=== PATIENT | female | born 1975 | race Caucasian/White ===

== ENCOUNTER 2019-09-16 17:34 | Emergency (ER) | payer SELFPAY ==
[~2019-09-16] VITALS: Ht 162.6 cm; Wt 81.8 kg
[2019-09-16] MEDS ORDERED: LIDOCAINE 2%/EPI 1:100,000 20 ML VIAL. IJ ONE (18:00)
[2019-09-16] MEDS ORDERED: CLINDAMYCIN HCL 150 MG CAPSULE PO ONE (18:00)
[2019-09-16] MEDS ORDERED: CLIN300C8 PO (18:28)
[2019-09-16] MEDS ORDERED: HYDR-3165 PO (18:28)
--- NOTE | 2019-09-16 18:28 | PHYS DOC ---
Past History Past Medical History: Other Additional Past Medical Histor: Lupus, denies every being on any treatment Past Surgical History: No Surgical History Alcohol Use: None Drug Use: None General Adult EDM: Chief Complaint: SKIN PROBLEM HPI: HPI: Patient is a [age] year old [sex] who presents with [] Review of Systems: Review of Systems: Constitutional: Denies fever or chills Eyes: Denies change in visual acuity HENT: Denies nasal congestion or sore throat Respiratory: Denies cough or shortness of breath Cardiovascular: Denies chest pain or edema GI: Denies abdominal pain, nausea, vomiting, bloody stools or diarrhea : Denies dysuria Musculoskeletal: Denies back pain or joint pain Integument: Denies rash Neurologic: Denies headache, focal weakness or sensory changes Endocrine: Denies polyuria or polydipsia Lymphatic: Denies swollen glands Psychiatric: Denies depression or anxiety Heart Score: Risk Factors: Risk Factors: DM, Current or recent (<one month) smoker, HTN, HLP, family history of CAD, obesity. Risk Scores: Score 0 - 3: 2.5% MACE over next 6 weeks - Discharge Home Score 4 - 6: 20.3% MACE over next 6 weeks - Admit for Clinical Observation Score 7 - 10: 72.7% MACE over next 6 weeks - Early Invasive Strategies Current Medications: Current Meds: Current Medications Medications (Trade) Dose Ordered Sig/Yi Start Time Stop Time Status Last Admin Dose Admin Clindamycin HCl (Cleocin) 300 mg 1X ONCE 09/16/19 18:00 09/16/19 18:01 DC Lidocaine/ Epinephrine (Xylocaine 2%-Epi 1:100,000) 20 ml 1X ONCE 09/16/19 18:00 09/16/19 18:01 DC Allergies: Allergies: Allergies Coded Allergies Type Severity Reaction Last Updated Verified Penicillins Allergy Unknown 08/10/14 Yes Physical Exam: PE: Constitutional: Well developed, well nourished, no acute distress, non-toxic appearance. [] HENT: Normocephalic, atraumatic, bilateral external ears normal, oropharynx moist, no oral exudates, nose normal. [] Eyes: PERRLA, EOMI, conjunctiva normal, no discharge. [] Neck: Normal range of motion, no tenderness, supple, no stridor. [] Cardiovascular:Heart rate regular rhythm, no murmur [] Lungs & Thorax: Bilateral breath sounds clear to auscultation [] Abdomen: Bowel sounds normal, soft, no tenderness, no masses, no pulsatile masses. [] Skin: Warm, dry, no erythema, no rash. [] Back: No tenderness, no CVA tenderness. [] Extremities: No tenderness, no cyanosis, no clubbing, ROM intact, no edema. [] Neurologic: Alert and oriented X 3, normal motor function, normal sensory function, no focal deficits noted. [] Psychologic: Affect normal, judgement normal, mood normal. [] Current Patient Data: Vital Signs: Vital Signs Date Time Temp Pulse Resp B/P (MAP) Pulse Ox O2 Delivery O2 Flow Rate FiO2 09/16/19 17:49 98.2 110 18 128/66 (86) 98 Room Air EKG: EKG: [] Radiology/Procedures: Radiology/Procedures: [] Course & Med Decision Making: Course & Med Decision Making Pertinent Labs and Imaging studies reviewed. (See chart for details) [] Dragon Disclaimer: Dragon Disclaimer: This electronic medical record was generated, in whole or in part, using a voice recognition dictation system. Departure Departure: Impression: Primary Impression: Abscess Disposition: HOME/RESIDENCE PRIOR TO ADM Condition: STABLE Referrals: PCP,LARRY (PCP) Patient Instructions: Abscess, [id number], Incision and Drainage, Care After Additional Instructions: Remove packing after 24 hours. Do not soak your wound. You may shower. Clean wound daily with soap and water. Change dressing 2 times daily. Use over the counter antibiotic ointment with each dressing change. Scripts Clindamycin Hcl (CLINDAMYCIN HCL) 300 Mg Capsule 1 CAP PO TID for infection for 7 Days, #21 CAP Prov: XAVIER ALLEN DO 09/16/19 Hydrocodone Bit/Acetaminophen (NORCO 5-325 TABLET) 1 Each Tablet 0.5-1 TAB PO Q6HRS PRN for PAIN, #10 TAB Prov: XAVIER ALLEN DO 09/16/19 Justification of Admission: Justification of Admission: Justification of Admission Dx: N/A XAVIER ALLEN DO Sep 16, 2019 18:28
[2019-09-16 18:48] VITALS: BP 133/56
== END 2019-09-16 18:52 | disposition home or self-care (01) ==
LOC: ER 17:34
DX: L02.211 Cutaneous abscess of abdominal wall (principal); R21 Rash and other nonspecific skin eruption
CPT/HCPCS: 10060; 99283

== ENCOUNTER 2019-11-01 19:20 | Emergency (ER) | payer SELFPAY ==
[~2019-11-01] VITALS: Ht 162.6 cm; Wt 80.0 kg
[~2019-11-01 19:20] MED LIST: CLIN300C8 PO; HYDR-3165 PO
[2019-11-01] MEDS ORDERED: IV NORMAL SALINE 1,000ML 1,000 ML IV SCH (20:28)
[2019-11-01] MEDS ORDERED: methylPREDNISolone SOD SUCC PF 125 MG/2 ML VIAL. IV ONE (20:30)
--- NOTE | 2019-11-01 20:41 | PHYS DOC ---
Past History Past Medical History: Other Additional Past Medical Histor: Lupus, denies every being on any treatment Past Surgical History: No Surgical History Smoking: Cigarettes Alcohol Use: None Drug Use: None General Adult EDM: Chief Complaint: MULTIPLE COMPLAINTS HPI: HPI: Patient is a 44 year old female who presents for evaluation of multiple complaints. These include cough, headache and dizziness. Patient has some diffuse abdominal discomfort and body aches. Symptoms been progressing for the past 2 days. Patient has recent nasal congestion and a sore throat. Patient has no known exposure to COVID. Patient is a smoker. Patient does get seasonal bronchitis. Vital signs otherwise stable and patient is nontoxic-appearing Review of Systems: Review of Systems: Constitutional: has fever or chills Eyes: Denies change in visual acuity HENT: has nasal congestion and sore throat Respiratory: has cough and shortness of breath Cardiovascular: has chest pain, no edema GI: Denies abdominal pain, has nausea, no vomiting, bloody stools or diarrhea : Denies dysuria Musculoskeletal: Denies back pain or joint pain Integument: Denies rash Neurologic: has headache, no focal weakness or sensory changes Endocrine: Denies polyuria or polydipsia Lymphatic: Denies swollen glands Psychiatric: Denies depression or anxiety Heart Score: Risk Factors: Risk Factors: DM, Current or recent (<one month) smoker, HTN, HLP, family history of CAD, obesity. Risk Scores: Score 0 - 3: 2.5% MACE over next 6 weeks - Discharge Home Score 4 - 6: 20.3% MACE over next 6 weeks - Admit for Clinical Observation Score 7 - 10: 72.7% MACE over next 6 weeks - Early Invasive Strategies Current Medications: Current Meds: Current Medications Medications (Trade) Dose Ordered Sig/Yi Start Time Stop Time Status Last Admin Dose Admin Methylprednisolone Sodium Succinate (SOLU-Medrol 125MG VIAL) 125 mg 1X ONCE 11/01/19 20:30 11/01/19 20:34 DC Sodium Chloride 1,000 ml @ 1,000 mls/hr Q1H 11/01/19 20:28 11/01/19 21:27 Allergies: Allergies: Allergies Coded Allergies Type Severity Reaction Last Updated Verified Penicillins Allergy Unknown 08/10/14 Yes Physical Exam: PE: Constitutional: Well developed, well nourished, mild to moderate acute distress, non-toxic appearance. [] HENT: Normocephalic, atraumatic, bilateral external ears normal, oropharynx m oist, no oral exudates, nose normal. [] Eyes: PERRL, EOMI, conjunctiva normal, no discharge. [] Neck: Normal range of motion, no tenderness, supple, no stridor. [] Cardiovascular:Heart rate regular rhythm, no murmur [] Lungs & Thorax: Bilateral breath sounds clear to auscultation [] Abdomen: Bowel sounds normal, soft, minimal diffuse tenderness, no masses, no pulsatile masses. [] Skin: Warm, dry, no erythema, no rash. [] Back: No tenderness. [] Extremities: No tenderness, no cyanosis, no clubbing, ROM intact, no edema. [] Neurologic: Alert and oriented, normal motor function, normal sensory function, no focal deficits noted. [] Psychologic: Affect normal, judgement normal, mood abnormal. [] Current Patient Data: Labs: Laboratory Tests Test 11/01/19 21:22 11/01/19 21:41 White Blood Count 6.8 x10^3/uL Red Blood Count 3.56 x10^6/uL Hemoglobin 10.7 g/dL Hematocrit 33.4 % Mean Corpuscular Volume 94 fL Mean Corpuscular Hemoglobin 30 pg Mean Corpuscular Hemoglobin Concent 32 g/dL Red Cell Distribution Width 15.7 % Platelet Count 322 x10^3/uL Neutrophils (%) (Auto) 78 % Lymphocytes (%) (Auto) 13 % Monocytes (%) (Auto) 7 % Eosinophils (%) (Auto) 1 % Basophils (%) (Auto) 1 % Neutrophils # (Auto) 5.3 x10^3uL Lymphocytes # (Auto) 0.9 x10^3/uL Monocytes # (Auto) 0.5 x10^3/uL Eosinophils # (Auto) 0.1 x10^3/uL Basophils # (Auto) 0.0 x10^3/uL Sodium Level 135 mmol/L Potassium Level 3.9 mmol/L Chloride Level 103 mmol/L Carbon Dioxide Level 24 mmol/L Anion Gap 8 Blood Urea Nitrogen 16 mg/dL Creatinine 0.6 mg/dL Estimated GFR (Cockcroft-Gault) 109.1 BUN/Creatinine Ratio 27 Glucose Level 92 mg/dL Calcium Level 8.2 mg/dL Total Bilirubin 0.1 mg/dL Aspartate Amino Transf (AST/SGOT) 12 U/L Alanine Aminotransferase (ALT/SGPT) 24 U/L Alkaline Phosphatase 103 U/L Total Protein 7.4 g/dL Albumin 3.4 g/dL Albumin/Globulin Ratio 0.9 Lipase 45 U/L Serum Test, Qualitative Negative Urine Collection Type Unknown Urine Color Yellow Urine Clarity Clear Urine pH 6.5 Urine Specific [place] 1.010 Urine Protein Neg Urine Glucose (UA) Neg mg/dL Urine Ketones (Stick) Neg mg/dL Urine Blood Small Urine Nitrite Neg Urine Bilirubin Neg Urine Urobilinogen Dipstick 0.2 mg/dL Urine Leukocyte Esterase Neg Urine RBC 0 /HPF Urine WBC 0 /HPF Urine Squamous Epithelial Cells Few /LPF Urine Bacteria 0 /HPF Current Medications Medications (Trade) Dose Ordered Sig/Yi Route PRN Reason Start Time Stop Time Status Last Admin Dose Admin Sodium Chloride 1,000 ml @ 1,000 mls/hr Q1H IV 11/01/19 20:28 11/01/19 21:27 DC Methylprednisolone Sodium Succinate (SOLU-Medrol 125MG VIAL) 125 mg 1X ONCE IV 11/01/19 20:30 11/01/19 20:34 DC EKG: EKG: [] Radiology/Procedures: Radiology/Procedures: [][place] [address] IMAGING REPORT Signed PATIENT: LEXI BLANK ACCOUNT: [id number] : 1975 LOCATION: ER AGE: 44 SEX: F EXAM STATUS: PRE ER ORD. PHYSICIAN: RAUDEL MEADOWS DO REASON: CHEST AND ABD PAIN. HX TUBAL PROCEDURE: ACUTE ABDOMEN SERIES PA chest and AP upright supine abdomen x-rays HISTORY: Chest pain and abdominal pain. FINDINGS: Heart size normal. Mediastinum unremarkable. No pulmonary opacities or pleural effusions. No pneumoperitoneum. Cholecystectomy surgical clips. Large volume of stool consistent with constipation. Left pelvic phlebolith. 2 cm density surrounded by stool density at the cecum presumably due to something the patient ingested or soft tissue calcification overlapped by the cecum. No small bowel obstruction evident. IMPRESSION: Constipation with a large volume of stool present. No acute process in the chest. Electronically signed by: Wayne Draper MD (11/01/2019 9:29 PM) [facility] DICTATED AND SIGNED BY: WAYNE DRAPER MD DATE: 11/01/192128 CC: PCP,LARRY; RAUDEL MEADOWS DO ~ Course & Med Decision Making: Course & Med Decision Making Pertinent Labs and Imaging studies reviewed. (See chart for details) 2234 stable, feeling much better at this time. Lab work and x-rays unremarkable. COVID follow-up instructions and quarantine instructions given. Those results were not yet known. Prescription for Medrol Dosepak and albuterol inhaler given. Chest x-ray was clear Dragon Disclaimer: DragJascha Disclaimer: This electronic medical record was generated, in whole or in part, using a voice recognition dictation system. Departure Departure: Impression: Primary Impression: Acute bronchitis Qualified Codes: J20.9 - Acute bronchitis, unspecified Additional Impression: Person under investigation for COVID-19 Disposition: HOME/RESIDENCE PRIOR TO ADM Condition: STABLE Referrals: PCP,LARRY (PCP) TONA VILLASEÑOR MD Patient Instructions: Bronchitis Additional Instructions: Drink plenty fluids, rest, follow COVID instructions until results are known. No smoking, take medication as directed You have been tested for or diagnosed with COVID-19. It is an infection caused by a new type of coronavirus. COVID-19 will cause cold-like or mild flu symptoms in most. It can cause more severe symptoms like problems breathing in some. There is no treatment for COVID-19. The body will clear the infection over time. Self-care will help to ease discomfort. Steps to Take: Self-Care Rest as needed. Healthy habits may help you feel better. Steps include: Choose healthy foods including fruits and vegetables. Drink water throughout the day. Get plenty of sleep each night. If you smoke, try to quit. It may ease breathing. Avoid alcohol. Keep Others Healthy The virus can spread to others. Droplets are released every time you sneeze or cough. The droplets can get into the mouth, nose, or eyes of people near you and lead to infection. To lower the chances of spreading COVID-19 to others: Stay at home until your doctor has said it is safe to leave. If you tested positive this will mean staying isolated until both of the following are true: At least 7 days have passed since the start of illness. You are free of fever for at least 72 hours without the use of medicine. During this time: - Avoid public areas, events, or transportation. Do not return to work or school until your doctor has said it is safe to do so. - Call ahead if you need to go to a medical center. Let them know you may have COVID-19. It will help them guide you where to go. They may also ask you to wear a facemask when you come to the office. - If you call for emergency medical services, let them know you may have COVID- 19. While at home: - Try to avoid close contact with others. Stay about 6 feet away. - If possible, spend most of your time in a separate room from others. - Use a face mask if you will be in close contact with others such as sharing a room or vehicle. - Have someone wipe down common surfaces in the home. Use household breaker mechanic every day on areas like doorknobs, counters, or sinks. - Cough or sneeze into a tissue. Throw the tissue away right after use. If a tissue is not available, cough or sneeze into your elbow. - Wash your hands often. Wash them after sneezing or coughing. Use soap and water and wash for at least 20 seconds. Alcohol based hand kitchen cleaner can be used if soap and water is not available. - Do not prepare food for others. Avoid sharing personal items like forks, spoons, or toothbrushes. - Avoid close contact with pets while you are sick. There is no evidence of the virus passing to pets. This is a safety step until more is known about this virus. Isolation can be frustrating. Social interaction can help. Keep in touch with friends and family through phone and tech options. You can still interact with others in your home, just keep a safe distance of about 6 feet. Follow-up: Your doctors office will check in with you to see if there are any changes in your health. You may be asked to keep track of symptoms to share with them. They will also let you know when you are clear to be in public again. Problems to Look Out For: Contact your doctor if your recovery is not going as you expect. Get emergency care if you have problems such as: - Trouble breathing - Nonstop chest pain or pressure - Changes in awareness, confusion, or problems waking - Lips or face have bluish color - Worsening of symptoms If you think you have an emergency, call for emergency medical services right away. As taken from [facility] Scripts Albuterol Sulfate (VENTOLIN HFA INHALER) 18 Gm Hfa.aer.ad 1 PUFF IH PRN Q4HRS PRN for FOR ASTHMA for 10 Days, INHALER 0 Refills Prov: RAUDEL MEADOWS DO 11/01/19 Methylprednisolone (MEDROL) 4 Mg Tab.ds.pk 1 PKG PO UD for wheezing, #1 PKG Prov: RAUDEL MEADOWS DO 11/01/19 Azithromycin (ZITHROMAX TRI-EVE) 500 Mg Tablet 1 TAB PO DAILY for bronchitis, #3 TAB Prov: RAUDEL MEADOWS DO 11/01/19 Justification of Admission: Justification of Admission: Justification of Admission Dx: N/A COVID-19 Assessment COVID-19 Patient Risks: Age 65 or older: No Sign of co-morbidity: Yes Exp to person + for COVID: No Exp to PUI: No Travel from affected area: No Lower respiratory symptoms: Yes Fever: Yes Other: No PPE Use: Full PPE with N95 mask or PAPR: Yes RAUDEL MEADOWS DO Nov 01, 2019 20:41
--- NOTE | 2019-11-01 21:32 | RAD ---
PA chest and AP upright supine abdomen x-rays HISTORY: Chest pain and abdominal pain. FINDINGS: Heart size normal. Mediastinum unremarkable. No pulmonary opacities or pleural effusions. No pneumoperitoneum. Cholecystectomy surgical clips. Large volume of stool consistent with constipation. Left pelvic phlebolith. 2 cm density surrounded by stool density at the cecum presumably due to something the patient ingested or soft tissue calcification overlapped by the cecum. No small bowel obstruction evident. IMPRESSION: Constipation with a large volume of stool present. No acute process in the chest. Electronically signed by: Jose Draper MD (11/01/2019 9:29 PM) [facility]
[2019-11-01 21:49] LABS: BASO % 1 % (0-3); EOS # 0.1 x10^3/uL (0.0-0.7); EOS % 1 % (0-3); HEMATOCRIT 33.4 % (36.0-47.0); HEMOGLOBIN 10.7 g/dL (12.0-15.5); LYMPH # 0.9 x10^3/uL (1.0-4.8); LYMPH % 13 % (24-48); MEAN CORPUSCULAR HEMOGLOBIN 30 pg (25-35); MEAN CORPUSCULAR HGB CONC 32 g/dL (31-37); MEAN CORPUSCULAR VOLUME 94 fL (79-100); MONO # 0.5 x10^3/uL (0.0-1.1); MONO % 7 % (0-9); NEUT # 5.3 x10^3uL (1.8-7.7); NEUT % 78 % (31-73); PLATELET COUNT 322 x10^3/uL (140-400); RED BLOOD COUNT 3.56 x10^6/uL (3.50-5.40); RED CELL DISTRIBUTION WIDTH 15.7 % (11.5-14.5); WHITE BLOOD COUNT 6.8 x10^3/uL (4.0-11.0)
[2019-11-01 21:50] LABS: PREG TEST PT QUAL NEGATIVE (NEG)
[2019-11-01 21:56] LABS: CALCIUM 8.2 mg/dL (8.5-10.1); CREATININE 0.6 mg/dL (0.6-1.0); GFR 109.1; POTASSIUM 3.9 mmol/L (3.5-5.1)
[2019-11-01 22:03] LABS: ALBUMIN 3.4 g/dL (3.4-5.0); ALBUMIN/GLOBULIN RATIO 0.9 (1.0-1.7); TOTAL BILIRUBIN 0.1 mg/dL (0.2-1.0); TOTAL PROTEIN 7.4 g/dL (6.4-8.2)
[2019-11-01 22:15] LABS: BILIRUBIN,URINE NEG (NEG); CLARITY,URINE CLEAR; COLOR,URINE YELLOW; GLUCOSE,URINE NEG (NEG); NITRITE,URINE NEG (NEG); UROBILINOGEN,URINE 0.2 mg/dL (0.2 mg/dL)
[2019-11-01 22:19] LABS: BACTERIA,URINE 0 /HPF (0-FEW); RBC,URINE 0 /HPF (0-2); SQUAMOUS EPITHELIAL CELL,UR FEW /LPF; WBC,URINE 0 /HPF (0-4)
[2019-11-01] MEDS ORDERED: AZIT500T2 PO (22:42)
[2019-11-01] MEDS ORDERED: ALBU2.5V8 IH (22:42)
[2019-11-01] MEDS ORDERED: METH4TAB2 PO (22:42)
[2019-11-01 23:00] VITALS: BP 117/58
[2019-11-01] MEDS ORDERED: ALBUTEROL SULFATE 8GM INHALER. INH ONE (23:15)
--- NOTE | 2019-11-04 11:59 | NUR ---
IP: attempt to notify patient of COVID result, unable to leave call back message. Will send letter.
== END 2019-11-01 23:22 | disposition home or self-care (01) ==
LOC: ER 19:20
DX: J20.9 Acute bronchitis, unspecified (principal); R10.84 Generalized abdominal pain; J02.9 Acute pharyngitis, unspecified; F17.210 Nicotine dependence, cigarettes, uncomplicated; Z20.828 Contact with and (suspected) exposure to other viral communicable diseases; Z88.0 Allergy status to penicillin
CPT/HCPCS: 36415; 74022; 80053; 81001; 83690; 84703; 85025; 94640; 96361; 96374; 99284; J2930; J7030; J7613; U0003; 94664

== ENCOUNTER 2020-03-06 13:07 | Emergency (ER) | payer OTHER ==
[~2020-03-06] VITALS: Ht 162.6 cm; Wt 80.0 kg
[~2020-03-06 13:07] MED LIST changes: +ALBU2.5V8 IH; +AZIT500T2 PO; -CLIN300C8 PO; +CLIN300C9 PO; +METH4TAB2 PO
--- NOTE | 2020-03-06 13:31 | PHYS DOC ---
Past History Past Medical History: Bronchitis, Gallstones, Other Additional Past Medical Histor: Lupus, denies every being on any treatment Past Surgical History: Cholecystectomy, Tubal ligation Smoking: Cigarettes Alcohol Use: None Drug Use: None Adult General HPI HPI Patient is a 44-year-old female presents emergency department reporting a slip and fall this morning at work. 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 Patient denies hitting her head, denies loss of consciousness, denies back pain. Patient reports both her knees hurt her left elbow hurts her right hip and pelvis area hurts. Patient states that a coworker helped her into her car and drove her here for emergency department evaluation. Patient states she is a cigarette smoker, denies alcohol use or illicit drug use. Patient denies numbness or tingling down her extremities, patient reports her pain at a 7/10 on a 1-10 pain scale. Patient reports a past surgical history of having her gallbladder removed in 2013, a tubal ligation in the year 1999, right sided carpal tunnel surgery in 2010. Patient reports an allergy to penicillin, takes no prescription medications at home, denies taking ocro-clm-sgblytm medications at home. Patient denies any other physical complaints or physical injuries. Patient states her last tetanus immunization was a year ago. Patient denies any COVID-19 virus symptoms, does not wish to be checked for the COVID-19 virus today. Review of Systems Review of Systems 14 body systems of review of systems have been reviewed. See HPI for pertinent positives and negative responses, otherwise all other systems are negative, nonpertinent or noncontributory. Allergies Allergies Allergies Coded Allergies Type Severity Reaction Last Updated Verified Penicillins Allergy Unknown 11/01/19 Yes Physical Exam Physical Exam Constitutional: Well developed, well nourished, no acute distress, non-toxic appearance. HENT: Normocephalic, atraumatic, bilateral external ears normal, oropharynx moist, no oral exudates, nose normal. Eyes: PERRLA, EOMI, conjunctiva normal, no discharge. Neck: Normal range of motion, no tenderness, supple, no stridor. Cardiovascular:Heart rate regular rhythm, no murmur, heart sounds S1-S2. Lungs & Thorax: Bilateral breath sounds clear to auscultation all lung espinosa. Abdomen: Bowel sounds normal, soft, no tenderness, no masses, no pulsatile masses. Skin: Warm, dry, no erythema, no rash. Superficial abrasion left elbow measuring 1 cm x 2 cm no bleeding. Skin intact over bilateral knees, right hip area. Back: No tenderness, no CVA tenderness. Extremities:, no cyanosis, no clubbing, tenderness to palpation and passive range of motion bilateral knees, and left elbow, tenderness to palpation and passive range of motion right hip. Pelvis stable, left elbow full passive range of motion without eliciting pain, pain to palpation at tip of olecranon process. Neurologic: Alert and oriented X 3, normal motor function, normal sensory function, no focal deficits noted. Psychologic: Affect normal, judgement normal, mood normal. EKG EKG [] Radiology/Procedures Radiology/Procedures PATIENT: LEXI BLANK ACCOUNT: [id number] : 1975 LOCATION: ER AGE: 44 SEX: F EXAM STATUS: REG ER ORD. PHYSICIAN: XAVIER ACEVES APRN REASON: SLIP AND FALL PROCEDURE: KNEE BILAT 4V EXAMINATION: XR HIP (WITH OR WITHOUT PELVIS) 1 VIEW, XR KNEE 4 VIEWS WITH PATELLA, XR ELBOW COMPLETE_LEFT 3+VIEWS CLINICAL HISTORY: Pain following fall TECHNIQUE: XR HIP (WITH OR WITHOUT PELVIS) 1 VIEW, XR KNEE 4 VIEWS WITH PATELLA, XR ELBOW COMPLETE_LEFT 3+VIEWS Number of Images/Views: 3 left elbow, 5 bilateral hips, 7 bilateral knees COMPARISON: None FINDINGS: LEFT ELBOW: No acute fracture. Joint spaces and alignment maintained. No significant joint effusion. BILATERAL HIPS: No acute fracture. Mild axial joint space narrowing in the right hip with tiny marginal osteophytes bilaterally. Pubic symphysis and SI joints maintained. Focal calcification projected along the superior margin of the right iliac crest, nonspecific. BILATERAL KNEES: No acute fracture. Medial and lateral compartment narrowing, moderate on the right and mild on the left. Small marginal osteophytes right medial compartment. Probable small joint effusions bilaterally. IMPRESSION: No acute osseous abnormality involving the left elbow, bilateral hips, or bilateral knees. Wzdy-hv-ujkzjydf degenerative changes bilateral knees, greater on the right. Mild degenerative changes right hip. Electronically signed by: Chandler Fraser DO (03/06/2020 2:28 PM) [id number] DICTATED AND SIGNED BY: CHANDLER FRASER DO DATE: 03/06/20 1417 CC: XAVIER ACEVES APRN; EMERGENCY,DEPARTMENT; PCP,LARRY ~MTH0 0 Heart Score Risk Factors: Risk Factors: DM, Current or recent (<one month) smoker, HTN, HLP, family history of CAD, obesity. Risk Scores: Risk Factors: DM, Current or recent (<one month) smoker, HTN, HLP, family history of CAD, obesity. Course & Med Decision Making Course & Med Decision Making Pertinent Labs and Imaging studies reviewed. (See chart for details) 44-year-old female, vital signs reviewed, presents emergency department after slip and fall. Physical examination revealed pain to palpation on right hip and pelvis area, minor abrasion left elbow, bilateral knee pain, the patient was transported from her POV to the ED room via wheelchair. The patient was able to stand and ambulate and transfer to ED exam chair with assistance. X-ray imaging unremarkable, no fractures noted, patient reported some pain relief with IM pain medication given in the ED. Patient's bilateral knees and left elbow were Favio wrapped by ED nurse. Discussed with patient x-ray findings, RICE therapy, will give prescriptions for muscle relaxer and ibuprofen, patient gave verbal understanding of medication use at home, follow-up with primary care soon, return to ER precautions or concerns, follow-up with work comp if needed, no questions or concerns and was discharged home. Dragon Disclaimer Dragon Disclaimer This electronic medical record was generated, in whole or in part, using a voice recognition dictation system. Departure Departure: Impression: Primary Impression: Fall (on) (from) other stairs and steps, initial encounter Additional Impressions: Abrasion of left elbow Left elbow contusion Contusion, knee Contusion, hip Disposition: 01 DC HOME SELF CARE/HOMELESS Condition: IMPROVED Referrals: PCP,NO (PCP) Patient Instructions: Elastic Bandage and RICE Additional Instructions: Please take medications as prescribed, follow RICE therapy, follow-up with your primary care physician or work comp doctor as needed, return to the emergency department for worsening symptoms or other concerns. I have given you a work excuse for the next 2 days. EMERGENCY DEPARTMENT GENERAL DISCHARGE INSTRUCTIONS Thank you for coming to [facility] (ED) today and trusting us with you care. We trust that you had a positivie experience in our Emergency Department. If you wish to speak to the department management, you may call the director at [phone]. YOUR FOLLOW UP INSTRUCTIONS ARE FOLLOWS: 1. Do you have a private Doctor? If you do not have a private doctor, please ask for a resource list of physicians or clinics that may be able to assist you with follow up care. 2. The Emergency Physician has interpreted your x-rays. The X-Ray specialist will also review them. If there is a change in the findings, you will be notified in 48 hours when at all possible. 3. A lab test or culture has been done, your results will be reviewed and you will be notified if you need a change in treatment. ADDITIONAL INSTRUCTIONS AND INFORMATION: 1. Your care today has been supervised by a physician who is specially trained in emergency care. Many problems require more than one evaluation for a complete diagnosis a nd treatment. We recommend that you schedule your follow up appointment as recommended to ensure complete treatment of you illness or injury. If you are unable to obtain follow up care and continue to have a problem, or if your condition worsens, we recommend that you return to the ED. 2. We are not able to safely determine your condition over the phone nor are we able to give sound medical advice over the phone. For these safety reasons, if you call for medical advice we will ask you to come to the ED for further evaluation. 3. If you have any questions regarding these discharge instructions please call the ED at [phone]. SAFETY INFORMATION: In the interest of safety, wellness, and injury prevention; we encourage you to wear your sealbelt, if you smoke; quite smoking, and we encourage family to use a protective helmet for bicycling and other sporting events that present an increased risk for head injury. IF YOUR SYMPTOMS WORSEN OR NEW SYMPTOMS DEVELOP, OR YOU HAVE CONCERNS ABOUT YOUR CONDITION; OR IF YOUR CONDITION WORSENS WHILE YOU ARE WAITING FOR YOUR FOLLOW UP APPOINTMENT; EITHER CONTACT YOUR PRIMARY CARE DOCTOR, THE PHYSICIAN WHOSE NAME AND NUMBER YOU WERE GIVEN, OR RETURN TO THE ED IMMEDIATELY. Scripts Ibuprofen (IBUPROFEN) 600 Mg Tablet 600 MG PO TID PRN for PAIN, #20 TAB 0 Refills Prov: XAVIER ACEVES [employer]STRUCTION [employer]AMER 03/06/20 Cyclobenzaprine Hcl (CYCLOBENZAPRINE HCL) 10 Mg Tablet 1 TAB PO TID PRN PRN for PAIN, #12 TAB 0 Refills Prov: XAVIER ACEVES [employer]ER 03/06/20 Problem Qualifiers Additional Impressions: Abrasion of left elbow Encounter type: initial encounter Qualified Codes: S50.312A - Abrasion of left elbow, initial encounter Left elbow contusion Encounter type: initial encounter Qualified Codes: S50.02XA - Contusion of left elbow, initial encounter Contusion, knee Encounter type: initial encounter Laterality: unspecified laterality Qualified Codes: S80.00XA - Contusion of unspecified knee, initial encounter Contusion, hip Encounter type: initial encounter Laterality: right Qualified Codes: S70.01XA - Contusion of right hip, initial encounter XAVIER ACEVES [employer]STRUCTION [employer]ER Mar 06, 2020 13:31
[2020-03-06] MEDS ORDERED: KETOROLAC 60 MG/2 ML VIAL. IM ONE ×2 (13:43→13:45)
[2020-03-06] MEDS ORDERED: BACITRACIN ZINC TOPICAL OINT PACKET. TP ONE ×2 (13:43→13:45)
--- NOTE | 2020-03-06 14:31 | RAD ---
EXAMINATION: XR HIP (WITH OR WITHOUT PELVIS) 1 VIEW, XR KNEE 4 VIEWS WITH PATELLA, XR ELBOW COMPLETE_ LEFT 3+VIEWS CLINICAL HISTORY: Pain following fall TECHNIQUE: XR HIP (WITH OR WITHOUT PELVIS) 1 VIEW, XR KNEE 4 VIEWS WITH PATELLA, XR ELBOW COMPLETE_LE FT 3+VIEWS Number of Images/Views: 3 left elbow, 5 bilateral hips, 7 bilateral knees COMPARISON: None FINDINGS: LEFT ELBOW: No acute fracture. Joint spaces and alignment maintained. No significant joint effusion. BILATERAL HIPS: No acute fracture. Mild axial joint space narrowing in the right hip with tiny margin al osteophytes bilaterally. Pubic symphysis and SI joints maintained. Focal calcification projected a long the superior margin of the right iliac crest, nonspecific. BILATERAL KNEES: No acute fracture. Medial and lateral compartment narrowing, moderate on the right a nd mild on the left. Small marginal osteophytes right medial compartment. Probable small joint effusi ons bilaterally. IMPRESSION: No acute osseous abnormality involving the left elbow, bilateral hips, or bilateral knees. Xnbx-up-pjzegvxe degenerative changes bilateral knees, greater on the right. Mild degenerative changes right hip. Electronically signed by: Chandler Whitney DO (03/06/2020 2:28 PM) [id number]
[2020-03-06 16:56] LABS: BACTERIA,URINE MANY /HPF (0-FEW); BILIRUBIN,URINE NEG (NEG); CLARITY,URINE HAZY; COLOR,URINE YELLOW; GLUCOSE,URINE NEG (NEG); NITRITE,URINE POS (NEG); SQUAMOUS EPITHELIAL CELL,UR MANY /LPF; UROBILINOGEN,URINE 0.2 mg/dL (0.2 mg/dL)
[2020-03-06] MEDS ORDERED: IBUP600T16 PO (17:57)
[2020-03-06] MEDS ORDERED: CYCL-331 PO (17:57)
[2020-03-06 18:12] VITALS: BP 134/78
== END 2020-03-06 18:12 | disposition home or self-care (01) ==
LOC: ER 13:07
DX: S50.02XA Contusion of left elbow, initial encounter (principal); S80.02XA Contusion of left knee, initial encounter; S80.01XA Contusion of right knee, initial encounter; S70.01XA Contusion of right hip, initial encounter; F17.210 Nicotine dependence, cigarettes, uncomplicated; Z88.0 Allergy status to penicillin; W01.0XXA Fall on same level from slipping, tripping and stumbling without subsequent striking against object, initial encounter; Y93.01 Activity, walking, marching and hiking; Y92.89 Other specified places as the place of occurrence of the external cause; Y99.8 Other external cause status
CPT/HCPCS: 73080; 73521; 73564; 81001; 87086; 96372; 99284; J1885

== ENCOUNTER 2020-04-29 17:46 | Emergency (ER) | payer SELFPAY ==
[~2020-04-29] VITALS: Ht 162.6 cm; Wt 85.0 kg
[~2020-04-29 17:46] MED LIST changes: +CYCL-331 PO; +IBUP600T16 PO
--- NOTE | 2020-04-29 17:49 | PHYS DOC ---
Past History Past Medical History: Bronchitis, Constipation, Gallstones, Other Additional Past Medical Histor: Lupus, denies every being on any treatment Past Surgical History: Cholecystectomy, Tubal ligation Smoking: Cigarettes Alcohol Use: None Drug Use: None General Adult HPI: HPI: ".. I ve been having a lot of distention.. fullness .. the last month or so.. I was keeping me up at night.. and I just decided to get checked tonight...: Patient is a 44 year old female who presents with above hx and complaints of distention x 1month. Patient states she does not think she is too constipated. Patient denies any change in meds. No recent travel. No specific ill contacts. No history immunosuppression. Patient denies any intake bad food. Patient has past medical history of bronchitis, gallstones, lupus, arthritis, cholecy stectomy 2013, and tubal ligation. Patient denies had a EGD or colonoscopy in the last 7 years. Patient denies use of illicit drugs or alcohol. Did eat normal meals today. Last ate a cookie prior to arrival. At 8 PM she did have a peanut butter and jelly sandwich. And history of tarry stools. Review of Systems: Review of Systems: Constitutional: Denies fever or chills Eyes: Denies change in visual acuity HENT: Denies nasal congestion or sore throat Respiratory: Denies cough or shortness of breath Cardiovascular: Denies chest pain or edema GI: Complains of generalized abdominal pain, nausea and bloating. Patient denies, vomiting, bloody stools or diarrhea : Denies dysuria Musculoskeletal: Denies back pain or joint pain Integument: Denies rash Neurologic: Denies headache, focal weakness or sensory changes Endocrine: Denies polyuria or polydipsia Lymphatic: Denies swollen glands Psychiatric: Denies depression or anxiety Family History: Family History: Noncontributory to presentation Current Medications: Current Meds: See nursing for home meds Allergies: Allergies: Allergies Coded Allergies Type Severity Reaction Last Updated Verified Penicillins Allergy Unknown 11/01/19 Yes Physical Exam: PE: Constitutional:no acute distress, non-toxic appearance. [] HENT: Normocephalic, atraumatic, bilateral external ears normal, oropharynx moist, no oral exudates, nose normal. [] Eyes: PERRLA, EOMI, conjunctiva normal, no discharge. [] Neck: Normal range of motion, no tenderness, supple, no stridor. [] Cardiovascular:Heart rate regular rhythm, no murmur [] Lungs & Thorax: Bilateral breath sounds equal apex with few basilar crackles auscultation [] Abdomen: Bowel sounds normal, soft, no tenderness, no masses, no pulsatile masses. Distended. Old surgical scars. Obese. No specific area of rebound pain Skin: Warm, dry, no erythema, no rash. [] Back: No tenderness, no CVA tenderness. [] Extremities: No tenderness, no cyanosis, no clubbing, ROM intact, no edema. No psoas sign. Neurologic: Alert and oriented X 3, normal motor function, normal sensory function, no focal deficits noted. [] Psychologic: Affect anxious, judgement normal, mood normal. [] EKG: EKG: My interpretation EKG shows a sinus rhythm at 82 bpm. No findings acute STEMI or contralateral changes. [] Radiology/Procedures: Radiology/Procedures: [][place] [id number] IMAGING REPORT Signed PATIENT: LEXI BLANK ACCOUNT: [id number] : 1975 LOCATION: ER AGE: 44 SEX: F EXAM STATUS: REG ER ORD. PHYSICIAN: KIRSTEN ACE MD REASON: pain, distention, PROCEDURE: ACUTE ABDOMEN SERIES INDICATION: Reason: pain, distention, / Spl. Instructions: / History: COMPARISON: None. IMPRESSION: 4 views of the chest and abdomen obtained. Cardiac silhouette is unremarkable. No focal airspace consolidation to suggest pneumonia. No intraperitoneal free air is seen. Surgical clips right upper quadrant could be from postcholecystectomy changes. Moderate stool within the colon. Air scattered throughout large and small bowel in a nonspecific but not grossly obstructive pattern. Electronically signed by: Yesy Cramer MD (04/29/2020 6:48 PM) [id number] DICTATED AND SIGNED BY: YESY CRAMER MD DATE: 04/29/20 6760 CC: KIRSTEN ACE MD; PCP,NO ~MTH0 0 Heart Score: C/O Chest Pain: N/A HEART Score for Chest Pain: HEART Score for Chest Pain Response (Comments) Value History Slighlty/Non-Suspicious 0 ECG Normal 0 Age < 45 0 Risk Factors 1 or 2 Risk Factors 1 Troponin < Normal Limit 0 Total 1 Risk Factors: Risk Factors: DM, Current or recent (<one month) smoker, HTN, HLP, family history of CAD, obesity. Risk Scores: Score 0 - 3: 2.5% MACE over next 6 weeks - Discharge Home Score 4 - 6: 20.3% MACE over next 6 weeks - Admit for Clinical Observation Score 7 - 10: 72.7% MACE over next 6 weeks - Early Invasive Strategies Course & Med Decision Making: Course & Med Decision Making Pertinent Labs and Imaging studies reviewed. (See chart for details) Clear fluid diet only for the next 2 days. No solids. No milk products. Remain on clear fluids for bowel rest. Take Bactrim DS twice a day. Follow-up urine results. Follow-up with primary care. Impression: 1. Abdomen pain 2. Urinary tract infection 3. Constipation [] Dragon Disclaimer: Dragon Disclaimer: This electronic medical record was generated, in whole or in part, using a voice recognition dictation system. Departure Departure: Referrals: PCP,NO (PCP) Scripts Sulfamethoxazole/Trimethoprim (BACTRIM DS TABLET) 1 Each Tablet 1 TAB PO BID for uti for 7 Days, #14 TAB 0 Refills Prov: KIRSTEN ACE MD 04/29/20 Dragon Disclaimer This chart was dictated in whole or in part using Voice Recognition software in a busy, high-work load, and often noisy Emergency Department environment. It may contain unintended and wholly unrecognized errors or omissions. Dragon Disclaimer This chart was dictated in whole or in part using Voice Recognition software in a busy, high-work load, and often noisy Emergency Department environment. It may contain unintended and wholly unrecognized errors or omissions. KIRSTEN ACE MD Apr 29, 2020 17:48
[2020-04-29 17:55] VITALS: BP 120/65
[2020-04-29] MEDS ORDERED: MAGNESIUM HYDROXIDE 2,400 MG/30 ML ORAL.SUSP. PO ONE (18:15)
[2020-04-29] MEDS ORDERED: IV RINGERS SOLUTION,LACTATED 1,000 ML IV SCH (18:15)
[2020-04-29] MEDS ORDERED: FAMOTIDINE 20 MG/2 ML VIAL IVP ONE (18:15)
[2020-04-29] MEDS ORDERED: ONDANSETRON PF 4 MG/2 ML VIAL. IVP ONE (18:15)
[2020-04-29] MEDS ORDERED: KETOROLAC 30 MG/ML VIAL. IVP ONE (18:15)
[2020-04-29 18:49] LABS: BARBITURATES NEG (NEG); BENZODIAZEPINES NEG (NEG); CANNABINOIDS NEG (NEG); COCAINE NEG (NEG); METHADONE NEG (NEG); OPIATES NEG (NEG); PHENCYCLIDINE NEG (NEG)
--- NOTE | 2020-04-29 18:50 | RAD ---
INDICATION: Reason: pain, distention, / Spl. Instructions: / History: COMPARISON: None. IMPRESSION: 4 views of the chest and abdomen obtained. Cardiac silhouette is unremarkable. No focal airspace cons olidation to suggest pneumonia. No intraperitoneal free air is seen. Surgical clips right upper quadr ant could be from postcholecystectomy changes. Moderate stool within the colon. Air scattered through out large and small bowel in a nonspecific but not grossly obstructive pattern. Electronically signed by: Kamar Cramer MD (04/29/2020 6:48 PM) [id number]
[2020-04-29 18:53] LABS: BACTERIA,URINE MANY /HPF (0-FEW); BILIRUBIN,URINE NEG (NEG); CLARITY,URINE HAZY; COLOR,URINE YELLOW; GLUCOSE,URINE NEG (NEG); NITRITE,URINE POS (NEG); SQUAMOUS EPITHELIAL CELL,UR FEW /LPF; UROBILINOGEN,URINE 0.2 mg/dL (0.2 mg/dL)
[2020-04-29 18:56] LABS: BASO % 1 % (0-3); EOS # 0.1 x10^3/uL (0.0-0.7); EOS % 1 % (0-3); HEMATOCRIT 32.5 % (36.0-47.0); HEMOGLOBIN 10.4 g/dL (12.0-15.5); LYMPH # 1.3 x10^3/uL (1.0-4.8); LYMPH % 18 % (24-48); MEAN CORPUSCULAR HEMOGLOBIN 29 pg (25-35); MEAN CORPUSCULAR HGB CONC 32 g/dL (31-37); MEAN CORPUSCULAR VOLUME 89 fL (79-100); MONO # 0.5 x10^3/uL (0.0-1.1); MONO % 6 % (0-9); NEUT # 5.4 x10^3uL (1.8-7.7); NEUT % 74 % (31-73); PLATELET COUNT 319 x10^3/uL (140-400); RED BLOOD COUNT 3.63 x10^6/uL (3.50-5.40); RED CELL DISTRIBUTION WIDTH 17.5 % (11.5-14.5); WHITE BLOOD COUNT 7.3 x10^3/uL (4.0-11.0)
[2020-04-29 19:03] LABS: CALCIUM 8.6 mg/dL (8.5-10.1); CREATININE 0.6 mg/dL (0.6-1.0); GFR 109.1; POTASSIUM 3.7 mmol/L (3.5-5.1)
[2020-04-29 19:08] LABS: AMPHETAMINE/METHAMPHETAMINE POS (NEG)
[2020-04-29 19:14] LABS: ALBUMIN 3.7 g/dL (3.4-5.0); DIRECT BILIRUBIN 0.1 mg/dL (0.0-0.2); TOTAL BILIRUBIN 0.3 mg/dL (0.2-1.0); TOTAL PROTEIN 7.8 g/dL (6.4-8.2)
[2020-04-29] MEDS ORDERED: SMZ/TMP 800/160MG TABLET. PO ONE (19:30)
[2020-04-29] MEDS ORDERED: SULF1TAB24 PO (19:31)
--- NOTE | 2020-04-30 08:00 | EKG ---
[address] [address] Test Date: 2020-04-29 Test Time: 18:15:25 Pat Name: LEXI BLANK Department: Room: Gender: F [employer] Technician: : 1975 Requested By: KIRSTEN ACE Order Number: [id number] Reading MD: Measurements Intervals [place] Rate: P: AK: QRS: QRSD: T: QT: QTc: Interpretive Statements
== END 2020-04-29 19:43 | disposition short-term general hospital (02) ==
LOC: ER 18:03
DX: N39.0 Urinary tract infection, site not specified (principal); K59.00 Constipation, unspecified; F17.210 Nicotine dependence, cigarettes, uncomplicated; Z90.49 Acquired absence of other specified parts of digestive tract; Z98.51 Tubal ligation status; Z88.0 Allergy status to penicillin
CPT/HCPCS: 36415; 74022; 80048; 80076; 80307; 81001; 81025; 82150; 83690; 84484; 85025; 85610; 85730; 87086; 93005; 96361; 96374; 96375; 99285; J1885; J2405; J3490; J7120

== ENCOUNTER 2020-05-01 18:16 | Emergency (ER) | payer SELFPAY ==
[~2020-05-01] VITALS: Ht 162.6 cm; Wt 85.0 kg
[~2020-05-01 18:16] MED LIST changes: +SULF1TAB24 PO
--- NOTE | 2020-05-01 18:38 | PHYS DOC ---
Past History Past Medical History: Bronchitis, Constipation, Gallstones, Other Additional Past Medical Histor: lupus, ovarian cysts (XAVIER ACEVES APRN) Past Surgical History: Cholecystectomy, Tubal ligation, Other Additional Past Surgical Histo: ovarian cyst (XAVIER ACEVES APRN) Smoking: Cigarettes Alcohol Use: None Drug Use: None (XAVIER ACEVES APRN) Adult General Chief Complaint Chief Complaint: CONTISPATION HPI HPI Patient is a 44-year-old female presents emergency department complaining that she was seen here 2 days ago for constipation, has done with the doctor told her to cover states that she is still constipated and wants to be seen again. Patient states she has battled constipation, abdominal distention, and feeling a fullness in her abdomen for over a month now. Patient states she does feel nauseated but has not vomited patient denies any recent travel, denies being around anybody ill, denies any history of immunosuppression, denies eating any bad foods lately, denies past medical history of abdominal problems that require surgery. Patient states she does not see a physician and does not take any prescription medications. Patient reports a past surgical history of a gallbladder removal in 2013, tubal ligation years ago. Patient states she has had gallstones in the past, lupus problems, arthritis problems. Patient states she does not smoke cigarettes, does not use EtOH, denies illicit drug use. Patient states she had a bowel movement today but was small and hard. Patient denies any blood in her stool. Patient denies chest pains, no vomiting or diarrhea. Patient denies shortness of breath, rashes to her skin. Patient denies any other physical complaints or physical problems (XAVIER ACEVES APRN) Review of Systems Review of Systems Constitutional: Denies fever or chills [] Eyes: Denies change in visual acuity, redness, or eye pain [] HENT: Denies nasal congestion or sore throat [] Respiratory: Denies cough or shortness of breath [] Cardiovascular: No additional information not addressed in HPI [] GI: Denies abdominal pain, nausea, vomiting, bloody stools or diarrhea [] : Denies dysuria or hematuria [] Musculoskeletal: Denies back pain or joint pain [] Integument: Denies rash or skin lesions [] Neurologic: Denies headache, focal weakness or sensory changes [] Endocrine: Denies polyuria or polydipsia [] All other systems were reviewed and found to be within normal limits, except as documented in this note. (XAVIER ACEVES APRN) Allergies Allergies Allergies Coded Allergies Type Severity Reaction Last Updated Verified Penicillins Allergy Unknown 04/29/20 Yes (XAVIER ACEVES APRN) Physical Exam Physical Exam Constitutional: Well developed, well nourished, no acute distress, non-toxic appearance. 44-year-old patient, belching during physical exam HENT: Normocephalic, atraumatic, bilateral external ears normal, oropharynx moist, no oral exudates, nose normal. Oropharynx moist, pink, no infectious process appreciated, no lymphadenopathy of the head or neck. No drooling, no trismus. Eyes: PERRLA, EOMI, conjunctiva normal, no discharge. Neck: Normal range of motion, no tenderness, supple, no stridor. No nuchal rigidity, no meningeal signs. Cardiovascular:Heart rate regular rhythm, no murmur, heart sounds S1-S2 auscultation. Lungs & Thorax: Bilateral breath sounds clear to auscultation, no adventitious lung sounds appreciated. Abdomen: Bowel sounds normal, soft, no tenderness, no masses, no pulsatile maría s. Well-healed old surgical scar appreciated, patient's abdomen round, obese, no rebound tenderness, no psoas sign, no McBurney's point tenderness, no Henley sign. No ecchymosis appreciated of the abdomen. Skin: Warm, dry, no erythema, no rash. Back: No tenderness, no CVA tenderness. Extremities: No tenderness, no cyanosis, no clubbing, ROM intact, no edema. Distal cap refill less than 2 seconds. Neurologic: Alert and oriented X 3, normal motor function, normal sensory function, no focal deficits noted. Psychologic: Affect normal, judgement normal, mood normal. (XAVIER ACEVES APRN) Current Patient Data Vital Signs Vital Signs Date Time Temp Pulse Resp B/P (MAP) Pulse Ox O2 Delivery O2 Flow Rate FiO2 05/01/20 18:27 98.2 109 16 117/85 (96) 99 Room Air Lab Results Laboratory Tests Test 05/01/20 18:47 White Blood Count 5.7 x10^3/uL Red Blood Count 3.61 x10^6/uL Hemoglobin 10.4 g/dL Hematocrit 32.3 % Mean Corpuscular Volume 90 fL Mean Corpuscular Hemoglobin 29 pg Mean Corpuscular Hemoglobin Concent 32 g/dL Red Cell Distribution Width 16.8 % Platelet Count 405 x10^3/uL Neutrophils (%) (Auto) 67 % Lymphocytes (%) (Auto) 25 % Monocytes (%) (Auto) 7 % Eosinophils (%) (Auto) 1 % Basophils (%) (Auto) 0 % Neutrophils # (Auto) 3.8 x10^3uL Lymphocytes # (Auto) 1.4 x10^3/uL Monocytes # (Auto) 0.4 x10^3/uL Eosinophils # (Auto) 0.1 x10^3/uL Basophils # (Auto) 0.0 x10^3/uL Sodium Level 141 mmol/L Potassium Level 3.7 mmol/L Chloride Level 103 mmol/L Carbon Dioxide Level 26 mmol/L Anion Gap 12 Blood Urea Nitrogen 24 mg/dL Creatinine 0.9 mg/dL Estimated GFR (Cockcroft-Gault) 68.3 BUN/Creatinine Ratio 27 Glucose Level 94 mg/dL Calcium Level 8.6 mg/dL Total Bilirubin 0.2 mg/dL Aspartate Amino Transf (AST/SGOT) 15 U/L Alanine Aminotransferase (ALT/SGPT) 26 U/L Alkaline Phosphatase 92 U/L Total Protein 7.6 g/dL Albumin 3.7 g/dL Albumin/Globulin Ratio 0.9 Lipase 43 U/L Current Medications Medications (Trade) Dose Ordered Sig/Yi Route PRN Reason Start Time Stop Time Status Last Admin Dose Admin Sodium Chloride 1,000 ml @ 1,000 mls/hr 1X ONCE IV 05/01/20 18:45 05/01/20 19:44 DC 05/01/20 18:51 Ondansetron HCl (Zofran) 4 mg 1X ONCE IVP 05/01/20 18:45 05/01/20 18:46 DC 05/01/20 18:51 Ketorolac Tromethamine (Toradol 30mg Vial) 30 mg 1X ONCE IVP 05/01/20 18:45 05/01/20 18:46 DC 05/01/20 18:51 Iohexol (Omnipaque 300 Mg/ml) 75 ml 1X ONCE IV 05/01/20 18:45 05/01/20 18:52 DC 05/01/20 19:04 Multi-Ingredient Mouthwash/Gargle (Gi Cocktail) 20 ml 1X ONCE PO 05/01/20 20:00 05/01/20 20:01 DC (XAVIER ACEVES APRN) EKG EKG [] (XAVIER ACEVES APRN) Radiology/Procedures Radiology/Procedures PATIENT: LEXI BLANK ACCOUNT: [id number] : 1975 LOCATION: ER AGE: 44 SEX: F EXAM STATUS: REG ER ORD. PHYSICIAN: XAVIER ACEVES APRN REASON: SEVERE ABDOMINAL/EPIGASTRIC PAINS PROCEDURE: CT ABD PELV W/ IV CONTRST ONLY INDICATION: Reason: SEVERE ABDOMINAL/EPIGASTRIC PAINS / Spl. Instructions: / History: . COMPARISON: None. TECHNIQUE: Axial CT images obtained through the abdomen and pelvis with contrast. One or more of the following individualized dose reduction techniques were utilized for this examination: 1. Automated exposure control; 2. Adjustment of the mA and/or kV according to patient size; 3. Use of iterative reconstruction technique. FINDINGS: Abdominal aorta is not aneurysmal. Mild calcific atherosclerosis. Liver is borderline low density, mild fatty infiltration is not excluded. Postcholecystectomy changes with mild prominence of the bile ducts which is common postoperatively. No peripancreatic fluid collection. Spleen is unremarkable. No left-sided hydronephrosis. Urinary bladder is partially distended. No right-sided hydronephrosis. At the right side of the uterus there is a large low-density mass measuring approximately 58 x 47 mm. Is also a low-density mass in the right adnexa measuring up to about 45 mm. This is seen just superior to the uterus. No periappendiceal inflammatory changes. No dilated loops of bowel to suggest obstruction. Degenerative changes of the spine. Multilevel central canal and neural foraminal stenosis. Sclerosis at sacroiliac joints which could be from degenerative changes. Calcification within the subcutaneous fat right flank. IMPRESSION: * No evidence of bowel obstruction or appendicitis. * Large mass at the right side of the uterine myometrium. Most common cause would be fibroid but nonspecific appearance and other causes of uterine masses are not excluded. * Within the right adnexa there is a suspected ovarian mass identified. Ultr asound could be helpful to further assess and assess whether this is solid or cystic. Electronically signed by: Yesy Rodriguez MD (05/01/2020 7:22 PM) [id number] DICTATED AND SIGNED BY: YESY RODRIGUEZ MD DATE: 05/01/201913 CC: XAVIER ACEVES APRN; PCP,NO ~MTH0 0 (XAVIER ACEVES APRN) Heart Score C/O Chest Pain: No Risk Factors: Risk Factors: DM, Current or recent (<one month) smoker, HTN, HLP, family history of CAD, obesity. Risk Scores: Risk Factors: DM, Current or recent (<one month) smoker, HTN, HLP, family history of CAD, obesity. (XAVIER ACEVES APRN) Course & Med Decision Making Course & Med Decision Making Pertinent Labs and Imaging studies reviewed. (See chart for details) 44-year-old female, vital signs reviewed, presents to the emergency department concerning for constipation. Patient's physical examination concerning for acute abdominal process. Urinalysis assay ordered, lab work ordered, CT abdomen pelvis with IV contrast ordered. Labs unremarkable, no concerning changes from labs performed 2 days ago here at this emergency department, the patient did not give a urine for urinalysis assay, patient is currently being treated for a urinary tract infection related to urine results from [address] scan unremarkable for acute process, shows No evidence of bowel obstruction or appendicitis. Large mass at the right side of the uterine myometrium. Most common cause would be fibroid but nonspecific appearance and other causes of uterine masses are not excluded. Within the right adnexa there is a suspected ovarian mass identified. Ultrasound could be helpful to further assess and assess whether this is solid or cystic. Discussed findings with patient, patient states she is aware of this and has been told several times in the past to follow-up with an [facility] for further follow-up but has not done this. Patient will be given a [facility] to follow-up with, patient will be given a primary care provider to follow-up with. Discusse d with patient to continue taking her antibiotic for her UTI Patient gave verbal understanding of discharge home instructions, follow-up with [facility], follow-up with and establish a primary care provider, will continue taking her antibiotic for her urinary tract infection, return to ER precautions or concerns, discharged home without incident. (XAVIER ACEVES APRN) Course & Med Decision Making I oversaw care of patient while in ER and reviewed case with CANDLE WICKER. No indication for further workup or hospital admission at present. Patient needs to followup in outpatient setting for continued workup and definitive mgmt of numerous problems. I agree to note and plan of care as stated Electronically signed, Delaney Huffman DO (DELANEY HUFFMAN DO) Jie Disclaimer Jie Disclaimer This electronic medical record was generated, in whole or in part, using a voice recognition dictation system. (XAVIER ACEVES APRN) Departure Departure: Impression: Primary Impression: Abdominal pain Additional Impressions: UTI (urinary tract infection) Abnormal abdominal CT scan Disposition: HOME SELF CARE/HOMELESS Condition: GOOD Referrals: PCP,LARRY (PCP) FROYLAN MAURICE MICHAEL B MD Additional Instructions: Please continue taking your antibiotic for your urinary tract infection as directed by the doctor he seen here 2 days ago. We have discussed your abnormal CT and need to follow-up with [facility], please use Dr. Ghotra or any [facility] specialist of your choice, please make an appointment this Monday. I have given you a primary care provider to follow-up with for your health care needs, please see JANETTE Jackson, call Monday for an appointment. Return to the emergency department for worsening symptoms or other concerns, I am starting you on MiraLAX as we discussed, please use twice a day for control of your bowels. EMERGENCY DEPARTMENT GENERAL DISCHARGE INSTRUCTIONS Thank you for coming to [facility] (ED) today and trusting us with you care. We trust that you had a positivie experience in our Emergency Department. If you wish to speak to the department management, you may call the director at . YOUR FOLLOW UP INSTRUCTIONS ARE FOLLOWS: 1. Do you have a private Doctor? If you do not have a private doctor, please ask for a resource list of physicians or clinics that may be able to assist you with follow up care. 2. The Emergency Physician has interpreted your x-rays. The X-Ray specialist will also review them. If there is a change in the findings, you will be notified in 48 hours when at all possible. 3. A lab test or culture has been done, your results will be reviewed and you will be notified if you need a change in treatment. ADDITIONAL INSTRUCTIONS AND INFORMATION: 1. Your care today has been supervised by a physician who is specially trained in emergency care. Many problems require more than one evaluation for a complete diagnosis and treatment. We recommend that you schedule your follow up appointment as recommended to ensure complete treatment of you illness or injury. If you are unable to obtain follow up care and continue to have a problem, or if your condition worsens, we recommend that you return to the ED. 2. We are not able to safely determine your condition over the phone nor are we able to give sound medical advice over the phone. For these safety reasons, if you call for medical advice we will ask you to come to the ED for further evaluation. 3. If you have any questions regarding these discharge instructions please call the ED at [phone]. SAFETY INFORMATION: In the interest of safety, wellness, and injury prevention; we encourage you to wear your sealbelt, if you smoke; quite smoking, and we encourage family to use a protective helmet for bicycling and other sporting events that present an increased risk for head injury. IF YOUR SYMPTOMS WORSEN OR NEW SYMPTOMS DEVELOP, OR YOU HAVE CONCERNS ABOUT YOUR CONDITION; OR IF YOUR CONDITION WORSENS WHILE YOU ARE WAITING FOR YOUR FOLLOW UP APPOINTMENT; EITHER CONTACT YOUR PRIMARY CARE DOCTOR, THE PHYSICIAN WHOSE NAME AND NUMBER YOU WERE GIVEN, OR RETURN TO THE ED IMMEDIATELY. Scripts Polyethylene Glycol 3350 (MIRALAX) 119 Gm Powder 17 GM PO BID for constipation, #527 GM 0 Refills dissolve in water Prov: XAVIER ACEVES APRN 05/01/20 Problem Qualifiers Primary Impression: Abdominal pain Abdominal location: generalized Qualified Codes: R10.84 - Generalized abdominal pain Additional Impressions: UTI (urinary tract infection) Urinary tract infection type: site unspecified Hematuria presence: with hematuria Qualified Codes: N39.0 - Urinary tract infection, site not specified; R31.9 - Hematuria, unspecified XAVIER ACEVES APRN May 01, 2020 18:38 DELANEY HUFFMAN DO May 03, 2020 15:24
[2020-05-01] MEDS ORDERED: IV NORMAL SALINE 1,000ML 1,000 ML IV ONE (18:45)
[2020-05-01] MEDS ORDERED: ONDANSETRON PF 4 MG/2 ML VIAL. IVP ONE (18:45)
[2020-05-01] MEDS ORDERED: KETOROLAC 30 MG/ML VIAL. IVP ONE (18:45)
[2020-05-01] MEDS ORDERED: IOHEXOL 300 MG/ML 75 ML VIAL. IV ONE (18:45)
[2020-05-01 19:15] LABS: BASO % 0 % (0-3); EOS # 0.1 x10^3/uL (0.0-0.7); EOS % 1 % (0-3); HEMATOCRIT 32.3 % (36.0-47.0); HEMOGLOBIN 10.4 g/dL (12.0-15.5); LYMPH # 1.4 x10^3/uL (1.0-4.8); LYMPH % 25 % (24-48); MEAN CORPUSCULAR HEMOGLOBIN 29 pg (25-35); MEAN CORPUSCULAR HGB CONC 32 g/dL (31-37); MEAN CORPUSCULAR VOLUME 90 fL (79-100); MONO # 0.4 x10^3/uL (0.0-1.1); MONO % 7 % (0-9); NEUT # 3.8 x10^3uL (1.8-7.7); NEUT % 67 % (31-73); PLATELET COUNT 405 x10^3/uL (140-400); RED BLOOD COUNT 3.61 x10^6/uL (3.50-5.40); RED CELL DISTRIBUTION WIDTH 16.8 % (11.5-14.5); WHITE BLOOD COUNT 5.7 x10^3/uL (4.0-11.0)
[2020-05-01 19:18] LABS: CALCIUM 8.6 mg/dL (8.5-10.1); CREATININE 0.9 mg/dL (0.6-1.0); GFR 68.3; POTASSIUM 3.7 mmol/L (3.5-5.1)
[2020-05-01 19:25] LABS: ALBUMIN 3.7 g/dL (3.4-5.0); ALBUMIN/GLOBULIN RATIO 0.9 (1.0-1.7); TOTAL BILIRUBIN 0.2 mg/dL (0.2-1.0); TOTAL PROTEIN 7.6 g/dL (6.4-8.2)
--- NOTE | 2020-05-01 19:25 | RAD ---
INDICATION: Reason: SEVERE ABDOMINAL/EPIGASTRIC PAINS / Spl. Instructions: / History: . COMPARISON: None. TECHNIQUE: Axial CT images obtained through the abdomen and pelvis with contrast. One or more of the following individualized dose reduction techniques were utilized for this examinat ion: 1. Automated exposure control; 2. Adjustment of the mA and/or kV according to patient size; 3 . Use of iterative reconstruction technique. FINDINGS: Abdominal aorta is not aneurysmal. Mild calcific atherosclerosis. Liver is borderline low density, mild fatty infiltration is not excluded. Postcholecystectomy changes with mild prominence of the bile ducts which is common postoperatively. No peripancreatic fluid collection. Spleen is unremarkable. No left-sided hydronephrosis. Urinary bladder is partially distended. No right-sided hydronephrosis. At the right side of the uterus there is a large low-density mass measuring approximately 58 x 47 mm. Is also a low-density mass in the right adnexa measuring up to about 45 mm. This is seen just superi or to the uterus. No periappendiceal inflammatory changes. No dilated loops of bowel to suggest obstruction. Degenerative changes of the spine. Multilevel central canal and neural foraminal stenosis. Sclerosis at sacroiliac joints which could be from degenerative changes. Calcification within the sub cutaneous fat right flank. IMPRESSION: * No evidence of bowel obstruction or appendicitis. * Large mass at the right side of the uterine myometrium. Most common cause would be fibroid but non specific appearance and other causes of uterine masses are not excluded. * Within the right adnexa there is a suspected ovarian mass identified. Ultrasound could be helpful to further assess and assess whether this is solid or cystic. Electronically signed by: Kamar Cramer MD (05/01/2020 7:22 PM) [id number]
[2020-05-01] MEDS ORDERED: LIDO:MAALOX 1:1 20 ML SINGLE DOSE. PO ONE (20:00)
[2020-05-01] MEDS ORDERED: POLY119P4 PO (20:37)
[2020-05-01 20:39] VITALS: BP 120/82
== END 2020-05-01 20:43 | disposition home or self-care (01) ==
LOC: ER 18:16
DX: N39.0 Urinary tract infection, site not specified (principal); R31.9 Hematuria, unspecified; R10.84 Generalized abdominal pain; R11.0 Nausea; R93.89 Abnormal findings on diagnostic imaging of other specified body structures; J42 Unspecified chronic bronchitis; F17.210 Nicotine dependence, cigarettes, uncomplicated; Z90.49 Acquired absence of other specified parts of digestive tract; Z98.51 Tubal ligation status; Z88.0 Allergy status to penicillin
CPT/HCPCS: 36415; 74177; 80053; 83690; 85025; 96361; 96374; 96375; 99285; J1885; J2405; J7030; Q9967

== ENCOUNTER → 2020-08-17 | Outpatient (CLI) | payer OTHER ==
[~2020-08-17] MED LIST changes: +POLY119P4 PO
--- NOTE | 2020-08-17 16:22 | RAD ---
EXAM: Pelvic sonogram. HISTORY: Fibroids. Vaginal bleeding. TECHNIQUE: Sonographic imaging of the pelvis was performed. COMPARISON: CT dated 05/01/2020. FINDINGS: The uterus measures 11.5 x 8.0 x 5.5 cm. The endometrial stripe measures 14 mm in thickness . There is a uterine fibroid measuring 4.9 x 5.0 x 5.4 cm. There is a 4.3 cm right ovarian cyst. Ther e is normal blood flow within both ovaries. There is no pelvic free fluid. IMPRESSION: 1. 5.4 cm uterine fibroid. 2. Thickened endometrial stripe. This can be within normal limits for a premenopausal female, dependi ng on the phase the patient's menstrual cycle. Given reported vaginal bleeding, tissue sampling may b e indicated for definitive diagnosis if there is clinical concern. 3. 4.3 cm simple appearing right ovarian cyst. Electronically signed by: Lizett Sanders MD (08/17/2020 4:19 PM) [id number]
== END ==
LOC: US 14:41
PROVIDERS: ATTEND Obstetrics & Gynecology
DX: D25.9 Leiomyoma of uterus, unspecified (principal); N83.201 Unspecified ovarian cyst, right side
CPT/HCPCS: 76856